=== PATIENT | female | born 1975 | race Caucasian/White ===

== ENCOUNTER 2019-04-06 05:54 | Emergency (ER) | payer BC ==
[2019-04-06] MEDS ORDERED: ACETAMINOPHEN 1,000 MG/100 ML BTL IVPB ONE (06:09)
[2019-04-06] MEDS ORDERED: 0.9 % SODIUM CHLORIDE 1,000 ML BAG IV ONE (06:09)
[2019-04-06] MEDS ORDERED: ONDANSETRON HCL IV 4 MG/2 ML VIAL IV ONE (06:09)
--- NOTE | 2019-04-06 06:12 | Emergency Department Record ---
History of Present Illness - General Chief Complaint: Abdominal Pain Stated Complaint: ABD PAIN Time Seen by Provider: 04/06/19 06:04 Source: Patient, Family Mode of Arrival: Ambulatory Limitations: No limitations - History of Present Illness Initial Comments: The patient is here due to lower abdominal pain which started about an hour ago suddenly. The pain is sharp and stabbing and located just above the pelvic bone. The patient states she feels better when she is curled up in the position. She has no hx of similar issues and no recent dysuria, vaginal discharge, bleeding, vomiting, diarrhea or fever. The patient has no hx of any abdominal s urgeries. MD Complaint: Abdominal pain Onset/Timin -: Hour(s) Location: Suprapubic Migration to: No migration Severity: Severe Severity scale (1-10): 10 Quality: Sharp, Stabbing Consistency: Constant Improves With: Rest, Other Worsens With: Movement - Related Data LMP (females 10-50): 3 weeks ago Patient : No Home Medications Medication Instructions Recorded Confirmed Last Taken No Home Med [NO HOME MEDS] 04/06/19 04/06/19 Unknown Allergies Allergy/AdvReac Type Severity Reaction Status Date / Time Sulfa (Sulfonamide Allergy Intermediate HIVES Verified 04/06/19 06:04 Antibiotics) morphine Allergy PT UNSURE Verified 04/06/19 06:04 OF REACTION Travel Screening - Travel/Exposure Within Last 30 Days Have you traveled within the last 30 days?: No - Travel Symptoms Symptom Screening: Stomach Pain Review of Systems Constitutional: Denies: Chills, Fever Eyes: Denies: Eye discharge ENT: Denies: Congestion Respiratory: Denies: Cough, Dyspnea Cardiovascular: Denies: Chest pain Endocrine: Denies: Fatigue Gastrointestinal: Reports: Abdominal pain. Denies: Diarrhea, Nausea, Vomiting Genitourinary: Denies: Dysuria Musculoskeletal: Denies: Arthralgia Skin: Denies: Bruising Past Medical History - SOCIAL HISTORY Smoking Status: Light tobacco smoker (<10/day) Alcohol Use: None Drug Use: None - RESPIRATORY Hx Respiratory Disorders: No - CARDIOVASCULAR Hx Cardio Disorders: No - NEURO Hx Neuro Disorders: No - GI Hx GI Disorders: No - Hx Genitourinary Disorders: No - ENDOCRINE Hx Endocrine Disorders: No - MUSCULOSKELETAL Hx Musculoskeletal Disorders: No - PSYCH Hx Psych Problems: No - HEMATOLOGY/ONCOLOGY Hx Hematology/Oncology Disorders: No Family Medical History Any Significant Family History?: Yes Hx Cancer: Father, Mother, Brother/Sister Hx Heart Disease: Father Physical Exam - General General Appearance: Alert, Cooperative, Mild distress (The patient is presently lying on the bed in the position.) - Head Head exam: Atraumatic, Normocephalic - Eye Eye exam: Normal appearance, PERRL - Neck Neck exam: Normal inspection, Full ROM. negative: Tenderness - Respiratory Respiratory exam: Normal lung sounds bilaterally. negative: Respiratory distress - Cardiovascular Cardiovascular Exam: Regular rate, Normal rhythm, Normal heart sounds - GI/Abdominal GI/Abdominal exam: Soft, Normal bowel sounds, Tenderness (There is suprapubic tenderness.). negative: Guarding, Pulsatile mass, Rebound, Rigid - Extremities Extremities exam: Normal inspection, Full ROM, Normal capillary refill. negative: Tenderness - Neurological Neurological exam: Alert, Oriented X3. negative: Altered, Motor sensory deficit - Skin Skin exam: negative: Rash Course Vital Signs 04/06/19 06:02 Temperature 98.0 F Pulse Rate [ 61 Left] Respiratory 20 Rate Blood Pressure 104/65 [Left] Pulse Ox 99 - Reevaluation(s) Reevaluation #1: The patient is resting more comfortably at this time. She states the pain is improving with the [employer]. 04/06/19 06:34 Reevaluation #2: The patient states the pain was better but getting up to give the urine specimen did worsen the pain. The HCG did come back neg so I did order her abdominal CT. If neg the patient will need to be transferred for a pelvic US due to no US tech available here today. The case will be turned over to Dr. Griffith at 7am due to shift change. The plan will be discussed at length. 04/06/19 06:49 Medical Decision Making - Data Complexity MDM Data: Labs Ordered and/or Reviewed - Lab Data Result diagrams: 04/06/19 06:20 04/06/19 06:20 Disposition Forms: Patient Portal Access Quality - Quality Measures Quality Measures: N/A - Blood Pressure Screening View Details: Yes Does Patient Have Any of the Following: No Blood Pressure Classification: Normal BP Reading Systolic Measurement: 104 Diastolic Measurement: 65 Screening for High Blood Pressure: < Normal BP, F/U Not Required > [G8783]
[2019-04-06 06:32] LABS: ABSOLUTE NEUTROPHIL COUNT 2.36; BASO % 0.6 % (0-6); GRAN % 49.8 % (47-80); HEMATOCRIT 41.1 % (35.0-47.0); HEMOGLOBIN 13.3 gm/dl (11.6-16.0); LYMPH % 33.8 % (16-45); MEAN CELL VOLUME 90.3 fl (81-97); MEAN CORPUSCULAR HEMOGLOBIN 29.2 pg (27-33); MEAN CORPUSCULAR HGB CONC 32.4 g/dl (32-36); MEAN PLATELET VOLUME 11.8 fl (7.4-10.4); MONO % 11.8 % (0-9); PLATELET COUNT 145 K/uL (130-400); RED BLOOD COUNT 4.55 M/uL (3.80-5.40); RED CELL DISTRIBUTION WIDTH 13.4 % (11.5-14.5); WHITE BLOOD COUNT W/O DIFF 4.7 K/uL (4.2-12.2)
[2019-04-06 06:44] LABS: BLOOD UREA NITROGEN 12 mg/dL (6-20); CREATININE 0.7 mg/dL (0.5-0.9); EST GLOMERULAR FILTRATION RATE > 60 mL/min
[2019-04-06 06:45] LABS: LIPASE 32 U/L (13-60); TOTAL PROTEIN 6.1 g/dL (6.6-8.7)
[2019-04-06] MEDS ORDERED: KETOROLAC 30 MG/ML VIAL IVP ONE (06:45)
[2019-04-06 06:47] LABS: GLUCOSE,RANDOM 97 mg/dL (74-109)
[2019-04-06 06:49] LABS: ALBUMIN 3.9 g/dL (4.0-5.0); ALKALINE PHOSPHATASE 51 U/L (35-104); ALT/SGPT 9 U/L (<33); AST/SGOT 12 U/L (10.0-35.0)
[2019-04-06 06:50] LABS: BILIRUBIN,DIRECT < 0.2 mg/dL (0-0.3)
[2019-04-06 06:56] LABS: URINE APPEARANCE CLEAR; URINE BILIRUBIN NEGATIVE (NEGATIVE); URINE BLOOD NEGATIVE (NEGATIVE); URINE COLOR YELLOW; URINE GLUCOSE (UA) NEGATIVE (NEGATIVE); URINE KETONE NEGATIVE (NEGATIVE); URINE LEUKOCYTE ESTERASE NEGATIVE (NEGATIVE); URINE NITRITE NEGATIVE (NEGATIVE); URINE PROTEIN NEGATIVE (NEGATIVE); URINE UROBILINOGEN 0.2 E.U./dL (0.20 - 1.00)
--- NOTE | 2019-04-06 07:28 | CT SCAN REPORT ---
EXAMINATION: CT Abdomen and Pelvis without IV Contrast EXAM DATE: 04/06/2019 7:09 AM TECHNIQUE: Standard protocol CT imaging of the abdomen and pelvis was performed without intravenous c ontrast. INDICATION: Acute lower AP. COMPARISON: None ENCOUNTER: Not applicable CT ABDOMEN AND PELVIS FINDINGS: Lung Bases: Included extent of the lung bases are clear. Hepatobiliary: Hepatomegaly. No focal liver lesion identified. Normal gallbladder. Pancreas: The pancreas is normal. Spleen: The spleen is not enlarged. Adrenals: The adrenal glands are normal. Kidneys, Ureters, & Bladder: Both kidneys have a normal size and morphology. There is no hydronephro sis. Both ureters have a normal course and caliber and the urinary bladder a normal morphology and un iform wall thickness. No ureteral or bladder calculi are identified. Gastrointestinal: No bowel obstruction or free intraperitoneal air. Sigmoid diverticulosis without ev idence of acute diverticulitis. Reproductive Organs: Small amount of free fluid in the pelvis. Lymphatic System: There is no adenopathy within the abdomen or pelvis. Vasculature: Normal caliber abdominal aorta Peritoneum: No free fluid, free air, or inflammation Abdominal wall & Musculoskeletal: No suspicious bone lesion is identified. Assessment of the solid organs, soft tissues, and vascular structures is overall limited on noncontra st imaging, IMPRESSION: 1. No evidence of bowel obstruction or an acute inflammatory process in the abdomen or pelvis. 2. No hydronephrosis or urinary tract calculus. 3. Small amount of free fluid in the pelvis which may be physiologic. Dictated by: Beny Weinberg MD on 04/06/2019 7:12 AM. .
--- NOTE | 2019-04-06 07:53 | Emergency Department Record ---
History of Present Illness - General Chief Complaint: Abdominal Pain Stated Complaint: ABD PAIN Time Seen by Provider: 04/06/19 06:04 Source: Patient, Family Mode of Arrival: Ambulatory Limitations: No limitations - History of Present Illness Initial Comments: sudden onset of pain at 4 am and it is left lower quad and some right lower quad and no dysuria and no diarrhea and no vomiting and history of ovarian cysts and same sexual partner for 22 years no vaginal discharge. MD Complaint: Abdominal pain Onset/Timin -: Hour(s) Location: Suprapubic Migration to: No migration Severity: Severe Severity scale (1-10): 10 Quality: Sharp, Stabbing Consistency: Constant Improves With: Rest, Other Worsens With: Movement - Related Data LMP (females 10-50): 3 weeks ago Patient : No Home Medications Medication Instructions Recorded Confirmed Last Taken No Home Med [NO HOME MEDS] 04/06/19 04/06/19 Unknown Allergies Allergy/AdvReac Type Severity Reaction Status Date / Time Sulfa (Sulfonamide Allergy Intermediate HIVES Verified 04/06/19 06:04 Antibiotics) morphine Allergy PT UNSURE Verified 04/06/19 06:04 OF REACTION Travel Screening - Travel/Exposure Within Last 30 Days Have you traveled within the last 30 days?: No - Travel Symptoms Symptom Screening: Stomach Pain Review of Systems Reviewed: No additional complaints except as noted below Constitutional: Denies: Chills, Fever Eyes: Denies: Eye discharge ENT: Denies: Congestion Respiratory: Denies: Cough, Dyspnea Cardiovascular: Denies: Chest pain Endocrine: Denies: Fatigue Gastrointestinal: Reports: Abdominal pain. Denies: Diarrhea, Nausea, Vomiting Genitourinary: Denies: Dysuria Musculoskeletal: Denies: Arthralgia Skin: Denies: Bruising Neurological: Reports: As per HPI. Denies: Abnormal gait, Confusion, Headache, Numbness, Paresthesias, Seizure, Tingling, Tremors, Vertigo, Weakness Psychiatric: Reports: As per HPI. Denies: Anxiety, Auditory hallucinations, Depression, Homicidal thoughts, Suicidal thoughts, Visual hallucinations Hematological/Lymphatic: Reports: As per HPI. Denies: Anemia, Blood Clots, Easy bleeding, Easy bruising, Swollen glands Past Medical History - SOCIAL HISTORY Smoking Status: Light tobacco smoker (<10/day) Alcohol Use: None Drug Use: None - RESPIRATORY Hx Respiratory Disorders: No - CARDIOVASCULAR Hx Cardio Disorders: No - NEURO Hx Neuro Disorders: No - GI Hx GI Disorders: No - Hx Genitourinary Disorders: No - ENDOCRINE Hx Endocrine Disorders: No - MUSCULOSKELETAL Hx Musculoskeletal Disorders: No - PSYCH Hx Psych Problems: No - HEMATOLOGY/ONCOLOGY Hx Hematology/Oncology Disorders: No Family Medical History Any Significant Family History?: Yes Hx Cancer: Father, Mother, Brother/Sister Hx Heart Disease: Father Physical Exam - General General Appearance: Alert, Oriented x3, Cooperative, No acute distress Limitations: No limitations - Head Head exam: Normal inspection - Eye Eye exam: Normal appearance, PERRL Pupils: Normal accommodation - ENT ENT exam: Normal exam, Mucous membranes moist, Normal external ear exam, Normal orophraynx, TM's normal bilaterally Ear exam: Normal external inspection. negative: External canal tenderness Nasal Exam: Normal inspection. negative: Discharge, Sinus tenderness Mouth exam: Normal external inspection, Tongue normal Teeth exam: Normal inspection. negative: Dental caries Throat exam: Normal inspection. negative: Tonsillar erythema, Tonsillar exudate - Neck Neck exam: Normal inspection, Full ROM. negative: Tenderness - Respiratory Respiratory exam: Normal lung sounds bilaterally. negative: Respiratory distress - Cardiovascular Cardiovascular Exam: Regular rate, Normal rhythm, Normal heart sounds - GI/Abdominal GI/Abdominal exam: Soft, Normal bowel sounds, Guarding, Tenderness (left lower quad pain and some right lower pain) - Rectal Rectal exam: Deferred - exam: Deferred - Extremities Extremities exam: Normal inspection, Full ROM, Normal capillary refill. negative: Tenderness - Back Back exam: Reports: Normal inspection, Full ROM. Denies: Muscle spasm, Rash noted, Tenderness - Neurological Neurological exam: Alert, Normal gait, Oriented X3, Reflexes normal - Psychiatric Psychiatric exam: Normal affect, Normal mood - Skin Skin exam: Dry, Intact, Normal color, Warm Course Vital Signs 04/06/19 04/06/19 06:02 07:08 Temperature 98.0 F Pulse Rate [ 61 57 L Left] Respiratory 20 20 Rate Blood Pressure 104/65 104/62 [Left] Pulse Ox 99 99 - Reevaluation(s) Reevaluation #1: discussed case with Dr Ag MILES Doctor at [facility] and she will need an US to rule out ovarian torsion left side 04/06/19 07:58 Medical Decision Making - Data Complexity MDM Data: Labs Ordered and/or Reviewed (hcg neg wbc 4,700 ), X-Ray Ordered and/or Reviewed (CT negative) - Lab Data Result diagrams: 04/06/19 06:20 04/06/19 06:20 Lab Results 04/06/19 04/06/19 04/06/19 Range/Units 06:20 06:20 06:20 WBC 4.7 (4.2-12.2) K/uL RBC 4.55 (3.80-5.40) M/uL Hgb 13.3 (11.6-16.0) gm/dl Hct 41.1 (35.0-47.0) % MCV 90.3 (81-97) fl MCH 29.2 (27-33) pg MCHC 32.4 (32-36) g/dl RDW 13.4 (11.5-14.5) % Plt Count 145 (130-400) K/uL MPV 11.8 H (7.4-10.4) fl Gran % 49.8 (47-80) % Lymphocytes % 33.8 (16-45) % Monocytes % 11.8 H (0-9) % Eosinophils % 4.0 (0-6) % Basophils % 0.6 (0-6) % Absolute Neutrophils 2.36 Sodium 140 (136-145) mmol/L Potassium 4.2 (3.4-4.5) mmol/L Chloride 108 H (98-107) mmol/L Carbon Dioxide 22.0 (22-29) mmol/L Anion Gap 10.0 (7-16) BUN 12 (6-20) mg/dL Creatinine 0.7 (0.5-0.9) mg/dL Estimated GFR > 60 mL/min Random Glucose 97 (74-109) mg/dL Calcium 8.5 L (8.6-10.0) mg/dL Total Bilirubin 0.60 (0.2-1.0) mg/dL Direct Bilirubin < 0.2 (0-0.3) mg/dL AST 12 (10.0-35.0) U/L ALT 9 (<33) U/L Alkaline Phosphatase 51 (35-104) U/L Total Protein 6.1 L (6.6-8.7) g/dL Albumin 3.9 L (4.0-5.0) g/dL Lipase 32 (13-60) U/L Serum HCG, Qual Negative (NEGATIVE) Urine Color Urine Appearance Urine pH (5.0-8.0) Ur Specific [place] (1.002-1.030) Urine Protein (NEGATIVE) Urine Glucose (UA) (NEGATIVE) Urine Ketones (NEGATIVE) Urine Blood (NEGATIVE) Urine Nitrite (NEGATIVE) Urine Bilirubin (NEGATIVE) Urine Urobilinogen (0.20 - 1.00) E.U./dL Ur Leukocyte Esterase (NEGATIVE) 04/06/19 Range/Units 06:54 WBC (4.2-12.2) K/uL RBC (3.80-5.40) M/uL Hgb (11.6-16.0) gm/dl Hct (35.0-47.0) % MCV (81-97) fl MCH (27-33) pg MCHC (32-36) g/dl RDW (11.5-14.5) % Plt Count (130-400) K/uL MPV (7.4-10.4) fl Gran % (47-80) % Lymphocytes % (16-45) % Monocytes % (0-9) % Eosinophils % (0-6) % Basophils % (0-6) % Absolute Neutrophils Sodium (136-145) mmol/L Potassium (3.4-4.5) mmol/L Chloride (98-107) mmol/L Carbon Dioxide (22-29) mmol/L Anion Gap (7-16) BUN (6-20) mg/dL Creatinine (0.5-0.9) mg/dL Estimated GFR mL/min Random Glucose (74-109) mg/dL Calcium (8.6-10.0) mg/dL Total Bilirubin (0.2-1.0) mg/dL Direct Bilirubin (0-0.3) mg/dL AST (10.0-35.0) U/L ALT (<33) U/L Alkaline Phosphatase (35-104) U/L Total Protein (6.6-8.7) g/dL Albumin (4.0-5.0) g/dL Lipase (13-60) U/L Serum HCG, Qual (NEGATIVE) Urine Color Yellow Urine Appearance Clear Urine pH 6.0 (5.0-8.0) Ur Specific [place] <= 1.005 (1.002-1.030) Urine Protein Negative (NEGATIVE) Urine Glucose (UA) Negative (NEGATIVE) Urine Ketones Negative (NEGATIVE) Urine Blood Negative (NEGATIVE) Urine Nitrite Negative (NEGATIVE) Urine Bilirubin Negative (NEGATIVE) Urine Urobilinogen 0.2 (0.20 - 1.00) E.U./dL Ur Leukocyte Esterase Negative (NEGATIVE) Disposition Clinical Impression: Left lower quadrant pain, History of ovarian cyst Disposition: Acute Care Hospital Transfer Condition: (1) Good Additional Instructions: Go to [facility] emergency dept and will need an Ultrasound of pelvic area Forms: Patient Portal Access Time of Disposition: 08:03 Quality - Quality Measures Quality Measures: N/A - Blood Pressure Screening Does Patient Have Any of the Following: No Blood Pressure Classification: Normal BP Reading Systolic Measurement: 104 Diastolic Measurement: 62 Screening for High Blood Pressure: < Normal BP, F/U Not Required > [G8783]
== END 2019-04-06 08:24 | disposition short-term general hospital (02) ==
LOC: ER 05:54
DX: R10.32 Left lower quadrant pain (principal); M54.2 Cervicalgia; F17.210 Nicotine dependence, cigarettes, uncomplicated
CPT/HCPCS: 74176; 80048; 80076; 81003; 83690; 84703; 85025; 96365; 96375; 99284; J1885; J2405; J7030